=== PATIENT | male | born 1980 | race Caucasian/White ===

== ENCOUNTER 2022-03-29 04:35 | Emergency (ER) | payer OTHER ==
[~2022-03-29] VITALS: Ht 198.1 cm; Wt 156.5 kg
[2022-03-29 04:37] VITALS: BP 189/112
--- NOTE | 2022-03-29 04:37 | NUR ---
Patient BIB by Uriel CHOWDHURY. C/O pre-book x today. Patient taken to chair C.
--- NOTE | 2022-03-29 05:00 | NUR ---
Dr. Russell examining patient.
[2022-03-29] MEDS ORDERED: CHLO473S62 PO (05:13)
[2022-03-29 05:20] VITALS: BP 189/112
--- NOTE | 2022-03-29 05:20 | NUR ---
Patient discharged with v/s stable. Written and verbal after care instructions given and explained. Patient alert, oriented and verbalized understanding of instructions. Police with in custody. All questions addressed prior to discharge. ID band removed. Patient advised to follow up with PMD. Rx of PERIDEX given. Patient educated on indication of medication including possible reaction and side effects. Opportunity to ask questions provided and answered.
--- NOTE | 2022-03-29 05:20 | NUR ---
PATIENT BIB [employer]. PATIENT EXAMINED BY DR. THOMPSON. PATIENT MEDICALLY CLEARED AND RELEASED IN CUSTODY IN STABLE CONDITION. ORIGINAL PRE-BOOK FORM GIVEN TO OFFICER [facility] #650
== END 2022-03-29 05:20 ==
LOC: MED 04:35
DX: S03.2XXA Dislocation of tooth, initial encounter (principal); S01.511A Laceration without foreign body of lip, initial encounter; K21.9 Gastro-esophageal reflux disease without esophagitis; F12.90 Cannabis use, unspecified, uncomplicated; K50.90 Crohn's disease, unspecified, without complications; Z79.899 Other long term (current) drug therapy; W50.0XXA Accidental hit or strike by another person, initial encounter; Y93.89 Activity, other specified; Y92.89 Other specified places as the place of occurrence of the external cause; Y99.8 Other external cause status
CPT/HCPCS: 99283

== ENCOUNTER 2022-05-29 06:14 | Emergency (ER) | payer OTHER ==
[~2022-05-29] VITALS: Ht 195.6 cm; Wt 147.4 kg
[~2022-05-29 06:14] MED LIST: CHLO473S62 PO
[2022-05-29 06:49] VITALS: BP 196/107
--- NOTE | 2022-05-29 06:52 | NUR ---
TO LOBBY A/W BED AMBULATORY
--- NOTE | 2022-05-29 07:13 | NUR ---
SEEN AND EXAMINED BY EUNIEC
[2022-05-29] MEDS ORDERED: COROTSOL LEFT EAR (07:16)
--- NOTE | 2022-05-29 07:33 | NUR ---
42 Y/O MALE BIB SELF C/O LEFT EAR PAINX 4 DAYS, DENIES ANY DISCHARGE OR LOSS OF HEARING NKA PMH: [facility]
--- NOTE | 2022-05-29 07:34 | NUR ---
Patient discharged with v/s stable. Written and verbal after care instructions ABOUT OTITIS EXTERNA given and explained. Patient alert, oriented and verbalized understanding of instructions. Ambulatory with steady gait. All questions addressed prior to discharge. ID band removed. Patient advised to follow up with PMD. Rx of CORTISPORIN OTIC SOLUTION given. Patient educated on indication of medication including possible reaction and side effects. Opportunity to ask questions provided and answered.
== END 2022-05-29 07:34 | disposition home or self-care (01) ==
LOC: MED 06:14
DX: H60.92 Unspecified otitis externa, left ear (principal); K21.9 Gastro-esophageal reflux disease without esophagitis; Z79.899 Other long term (current) drug therapy
CPT/HCPCS: 99282

== ENCOUNTER 2023-03-03 07:25 | Emergency (ER) | payer OTHER ==
[~2023-03-03] VITALS: Ht 198.1 cm; Wt 147.4 kg
[~2023-03-03 07:25] MED LIST changes: +COROTSOL LEFT EAR
[2023-03-03 07:39] VITALS: BP 181/102; PULSE 82; RESP 18; TEMP 96.9; O2SAT 100
[2023-03-03 08:11] LABS: BASOPHILS # (AUTO) 0.1 K/uL (0.00-0.22); EOSINOPHILS # (AUTO) 0.2 K/uL (0-0.4); EOSINOPHILS % (AUTO) 3.4 % (0.0-4.0); HEMATOCRIT 31.3 % (36-52); HEMOGLOBIN 10.6 g/dL (12.0-18.0); LYMPHOCYTES # (AUTO) 1.3 K/uL (2.0-11.5); LYMPHOCYTES % (AUTO) 22.6 % (20.5-51.1); MEAN CORPUSCULAR HEMOGLOBIN 29 pg (27-31); MEAN CORPUSCULAR HGB CONC 34 g/dL (33-37); MEAN CORPUSCULAR VOLUME 86.3 fL (80-94); MONOCYTES # (AUTO) 0.4 K/uL (0.8-1.0); MONOCYTES % (AUTO) 6.3 % (1.7-9.3); NEUTROPHILS # (AUTO) 3.8 K/uL (1.8-7.7); NEUTROPHILS % (AUTO) 66.7 % (42.2-75.2); PLATELET COUNT (AUTO) 144 K/uL (140-450); RED BLOOD CELL COUNT(AUTO) 3.63 MIL/uL (4.20-6.10); RED CELL DISTRIBUTION WIDTH 15.9 % (11.6-13.7); WHITE BLOOD COUNT (AUTO) 5.7 K/uL (4.8-10.8)
[2023-03-03 08:33] LABS: ALBUMIN 3.6 g/dL (3.4-5.0); ANION GAP 13.5 (8-16); CALCIUM 8.4 mg/dL (8.5-10.1); CARBON DIOXIDE 28.6 mmol/L (21-32); CREATININE 2.1 mg/dL (0.6-1.3); POTASSIUM 3.1 mmol/L (3.5-5.1); TOTAL BILIRUBIN 0.3 mg/dL (0.0-1.0); TOTAL PROTEIN, SERUM 6.9 g/dL (6.4-8.2)
[2023-03-03] MEDS ORDERED: hydrALAZINE 20 MG/ML VIAL IVP ONE ×2 (08:50→09:40)
[2023-03-03 08:56] VITALS: PULSE 81
[2023-03-03] MEDS ORDERED: POTASSIUM CHLORIDE 10 MEQ TABER PO ONE (09:05)
[2023-03-03 09:21] VITALS: BP 191/92; RESP 20; O2SAT 99
== END 2023-03-03 10:02 | disposition left against medical advice (07) ==
LOC: MED 07:25
DX: M79.89 Other specified soft tissue disorders (principal); I12.9 Hypertensive chronic kidney disease with stage 1 through stage 4 chronic kidney disease, or unspecified chronic kidney disease; N18.9 Chronic kidney disease, unspecified; I83.93 Asymptomatic varicose veins of bilateral lower extremities; E87.6 Hypokalemia; D64.9 Anemia, unspecified; K21.9 Gastro-esophageal reflux disease without esophagitis; Z79.899 Other long term (current) drug therapy
CPT/HCPCS: 36415; 71045; 80053; 83880; 84484; 85025; 96374; 99284; J0360; Q0092

== ENCOUNTER 2023-09-26 11:02 | Emergency (ER) | payer OTHER ==
[~2023-09-26] VITALS: Ht 193 cm; Wt 136.8 kg
[2023-09-26 11:20] VITALS: BP 170/101; PULSE 80; RESP 16; TEMP 97.7; O2SAT 100
[2023-09-26] MEDS: ASPIRIN 81 MG TAB.CHEW PO ONE (12:15)
[2023-09-26 12:35] LABS: BASOPHILS # (AUTO) 0.1 K/uL (0.00-0.22); BASOPHILS % (AUTO) 0.8 % (0.0-2.0); EOSINOPHILS # (AUTO) 0.3 K/uL (0-0.4); EOSINOPHILS % (AUTO) 3.4 % (0.0-4.0); HEMATOCRIT 35.6 % (36-52); HEMOGLOBIN 12.2 g/dL (12.0-18.0); LYMPHOCYTES # (AUTO) 2.1 K/uL (2.0-11.5); MEAN CORPUSCULAR HEMOGLOBIN 28 pg (27-31); MEAN CORPUSCULAR HGB CONC 34 g/dL (33-37); MEAN CORPUSCULAR VOLUME 82.3 fL (80-94); MONOCYTES # (AUTO) 0.5 K/uL (0.8-1.0); MONOCYTES % (AUTO) 6.6 % (1.7-9.3); NEUTROPHILS # (AUTO) 5.1 K/uL (1.8-7.7); NEUTROPHILS % (AUTO) 63.2 % (42.2-75.2); PLATELET COUNT (AUTO) 176 K/uL (140-450); RED BLOOD CELL COUNT(AUTO) 4.33 MIL/uL (4.20-6.10); RED CELL DISTRIBUTION WIDTH 16.1 % (11.6-13.7); WHITE BLOOD COUNT (AUTO) 8.1 K/uL (4.8-10.8)
[2023-09-26 12:44] LABS: ANION GAP 13.6 (8-16); CALCIUM 9.6 mg/dL (8.5-10.1); CARBON DIOXIDE 28.4 mmol/L (21-32)
[2023-09-26 12:47] LABS: INR 1.06 (0.8-1.2); PARTIAL THROMBOPLASTIN TIME 27.1 secs (22-35.6); PROTHROMBIN TIME 11.1 secs (10.8-13.4)
[2023-09-26 12:51] LABS: ALANINE AMINOTRANSFERASE 19 U/L (12-78); ALBUMIN 3.9 g/dL (3.4-5.0); ALKALINE PHOSPHATASE 78 U/L (50-136); ASPARTATE AMINOTRANSFERASE 12 U/L (15-37); BILIRUBIN,DIRECT 0.1 mg/dL (0.0-0.3); TOTAL BILIRUBIN 0.5 mg/dL (0.0-1.0); TOTAL PROTEIN, SERUM 7.7 g/dL (6.4-8.2)
[2023-09-26 13:19] LABS: CREATININE 5.1 mg/dL (0.6-1.3)
[2023-09-26 14:18] VITALS: BP 173/107; PULSE 82; RESP 16; TEMP 98; O2SAT 98
== END 2023-09-26 14:22 | disposition home or self-care (01) ==
LOC: MED 11:02
DX: I12.9 Hypertensive chronic kidney disease with stage 1 through stage 4 chronic kidney disease, or unspecified chronic kidney disease (principal); N18.9 Chronic kidney disease, unspecified; K21.9 Gastro-esophageal reflux disease without esophagitis; Z79.899 Other long term (current) drug therapy
CPT/HCPCS: 36415; 71045; 80048; 80076; 83880; 84484; 85025; 85610; 85730; 93005; 99285

== ENCOUNTER 2023-12-21 14:26 | Emergency (ER) | payer OTHER ==
[~2023-12-21] VITALS: Ht 198.1 cm; Wt 129.3 kg
[2023-12-21 15:04] VITALS: BP 161/94; PULSE 90; RESP 18; TEMP 97.9; O2SAT 99
[2023-12-21] MEDS: LOSARTAN 50 MG TAB PO SCH (15:49)
[2023-12-21 16:16] LABS: BASOPHILS % (AUTO) 0.4 % (0.0-2.0); EOSINOPHILS # (AUTO) 0.1 K/uL (0-0.4); EOSINOPHILS % (AUTO) 2.3 % (0.0-4.0); HEMATOCRIT 32.7 % (36-52); HEMOGLOBIN 11.3 g/dL (12.0-18.0); LYMPHOCYTES # (AUTO) 1.1 K/uL (2.0-11.5); LYMPHOCYTES % (AUTO) 17.3 % (20.5-51.1); MEAN CORPUSCULAR HEMOGLOBIN 29 pg (27-31); MEAN CORPUSCULAR HGB CONC 35 g/dL (33-37); MEAN CORPUSCULAR VOLUME 83.8 fL (80-94); MONOCYTES # (AUTO) 0.3 K/uL (0.8-1.0); MONOCYTES % (AUTO) 4.8 % (1.7-9.3); NEUTROPHILS # (AUTO) 4.8 K/uL (1.8-7.7); NEUTROPHILS % (AUTO) 75.2 % (42.2-75.2); PLATELET COUNT (AUTO) 172 K/uL (140-450); RED BLOOD CELL COUNT(AUTO) 3.91 MIL/uL (4.20-6.10); RED CELL DISTRIBUTION WIDTH 15.6 % (11.6-13.7); WHITE BLOOD COUNT (AUTO) 6.3 K/uL (4.8-10.8)
[2023-12-21 16:18] LABS: BILIRUBIN,URINE NEGATIVE (NEGATIVE); BLOOD, URINE NEGATIVE (NEGATIVE); COLOR,URINE YELLOW (YELLOW); LEUKOCYTE ESTERASE ,URINE NEGATIVE (NEGATIVE); NITRITE, URINE NEGATIVE (NEGATIVE); PROTEIN,URINE 3+ (NEGATIVE); UGLUCOSE NEGATIVE (NEGATIVE); UROBILINOGEN,URINE 0.2 EU/dL (0.2 - 1)
[2023-12-21 16:20] LABS: APPEARANCE,URINE SLIGHTLY HAZY (CLEAR)
[2023-12-21 16:23] LABS: BACTERIA,URINE 1+ /HPF (None Seen); MUCUS,URINE None Seen /LPF (None Seen); RBC,URINE 0-5 /HPF (0-5); SQUAMOUS EPITHELIAL CELL,UR 0-3 (FEW) /LPF (0-3 (FEW)); WBC,URINE 0-5 /HPF (0-5)
[2023-12-21 16:24] LABS: COARSE GRANULAR CASTS,URINE 0-10 /LPF (None Seen)
[2023-12-21 16:25] LABS: AMPHETAMINE, URINE POSITIVE ng/ml (NEG <=1000); BARBITURATE, URINE NEGATIVE ng/ml (NEG <=200); BENZODIAZEPINE, URINE NEGATIVE ng/mL (NEG <=200); CANNABINOID, URINE POSITIVE ng/mL (NEG <=50); COCAINE, URINE NEGATIVE ng/mL (NEG <=300); PHENCYCLIDINE SCREEN,URINE NEGATIVE ng/mL (NEG <=25)
[2023-12-21 16:26] LABS: OPIATE, URINE NEGATIVE ng/mL (NEG <=2000)
[2023-12-21 16:34] LABS: ANION GAP 7.9 (8-16); CALCIUM 8.8 mg/dL (8.5-10.1); CARBON DIOXIDE 30.2 mmol/L (21-32); CREATININE 2.4 mg/dL (0.6-1.3); POTASSIUM 3.1 mmol/L (3.5-5.1)
[2023-12-21 17:30] VITALS: BP 184/78; PULSE 79; RESP 16; TEMP 98.1; O2SAT 98
== END 2023-12-21 17:30 | disposition home or self-care (01) ==
LOC: MED 14:26
DX: I12.9 Hypertensive chronic kidney disease with stage 1 through stage 4 chronic kidney disease, or unspecified chronic kidney disease (principal); N18.9 Chronic kidney disease, unspecified; F15.10 Other stimulant abuse, uncomplicated; K21.9 Gastro-esophageal reflux disease without esophagitis; Z86.69 Personal history of other diseases of the nervous system and sense organs; Z87.19 Personal history of other diseases of the digestive system; Z79.2 Long term (current) use of antibiotics; Z79.899 Other long term (current) drug therapy
CPT/HCPCS: 36415; 71045; 80048; 80305; 81001; 83880; 84484; 85025; 87086; 93005; 99285